=== PATIENT | male | born 1950 | race Caucasian/White ===

== ENCOUNTER 2018-03-31 12:03 | Day surgery (SDC) | payer MEDICARE ==
[~2018-03-31] VITALS: Ht 180.3 cm; Wt 72.7 kg
[2018-03-31] MEDS ORDERED: ASPIRIN 325 MG TABLET EC PO ONE (13:00)
[2018-03-31 13:09] VITALS: BP 135/59
[2018-03-31] MEDS ORDERED: UBID100C41 PO (13:25)
[2018-03-31] MEDS ORDERED: MULT-6 PO (13:25)
[2018-03-31] MEDS ORDERED: SIMV10TA3 PO (13:25)
[2018-03-31] MEDS ORDERED: ASPI-650 PO (13:25)
[2018-03-31] MEDS ORDERED: ASPIRIN 325 MG TABLET EC ONE (13:27)
[2018-03-31] MEDS ORDERED: PLEASE ENTER HEIGHT AND WEIGHT MC SCH (13:30)
[2018-03-31 13:32] LABS: BASOPHILS # (AUTO) 0.02 x10^3/uL (0-0.1); BASOPHILS % (AUTO) 0 % (0-1); EOSINOPHILS # (AUTO) 0.22 x10^3/uL (0-0.4); EOSINOPHILS % (AUTO) 4 % (1-7); LYMPHOCYTES # (AUTO) 1.49 x10^3/uL (1-3.4); LYMPHOCYTES % (AUTO) 26 % (22-44); MD NO; MEAN CORPUSCULAR HEMOGLOBIN 33.8 pg (27.5-34.5); MEAN CORPUSCULAR HGB CONC 33.8 g/dL (33.2-36.2); MEAN PLATELET VOLUME 8.1 fL (7.4-10.4); MONOCYTES # (AUTO) 0.53 x10^3/uL (0.2-0.8); MONOCYTES % (AUTO) 9 % (2-9); NEUTROPHILS # (AUTO) 3.59 x10^3/uL (1.8-6.8); NEUTROPHILS % (AUTO) 61 % (42-75); PLATELET COUNT 216 x10^3/uL (130-400); RED BLOOD COUNT 4.42 x10^6/uL (4.38-5.82); RED CELL DISTRIBUTION WIDTH 12.8 % (9.4-14.8)
[2018-03-31] MEDS ORDERED: TICAGRELOR 90 MG TABLET ONE (13:39)
[2018-03-31] MEDS ORDERED: VERAPAMIL 2.5 MG/ML, 2ML ONE (13:39)
[2018-03-31] MEDS ORDERED: FENTANYL PF 100 MCG/2ML ONE (13:39)
[2018-03-31] MEDS ORDERED: MIDAZOLAM 1 MG/ML, 5ML ONE (13:39)
[2018-03-31 13:40] LABS: INTERNATIONAL NORMALIZED RATIO 1.08 (0.93-1.1); PROTHROMBIN TIME 11.1 Seconds (9.6-11.5)
[2018-03-31] MEDS ORDERED: BIVALIRUDIN 250 MG ONE (13:40)
[2018-03-31] MEDS ORDERED: LIDOCAINE 2%, 2ML ONE (13:40)
[2018-03-31] MEDS ORDERED: DIPHENHYDRAMINE 50 MG/ML, 1ML ONE (13:40)
[2018-03-31] MEDS ORDERED: HEPARIN 1,000 UNITS/ML, 10ML ONE (13:40)
[2018-03-31] MEDS ORDERED: methylPREDNISolone SOD SUCC 125 MG/2 ML ONE (13:41)
[2018-03-31 13:44] LABS: ANION GAP 6 mmol/L (5-15); CALCIUM 8.4 mg/dL (8.5-10.1); CHLORIDE 112 mmol/L (98-107)
[2018-03-31] MEDS ORDERED: SODIUM CHLORIDE 0.9% 1,000 ML IV SCH (15:03)
== END 2018-03-31 16:57 ==
LOC: CACL 12:03
PROVIDERS: ATTEND Internal Medicine Cardiovascular Disease
DX: I25.10 Atherosclerotic heart disease of native coronary artery without angina pectoris (principal); Z82.49 Family history of ischemic heart disease and other diseases of the circulatory system; J93.83 Other pneumothorax
CPT/HCPCS: 36415; 80048; 85025; 85610; 85730; 93458; 99156; C1769; C1894; J1200; J1644; J2250; J2930; J3010; J3490; Q9967; J0583